=== PATIENT | male | born 1960 | race Caucasian/White ===

== ENCOUNTER 2022-07-02 13:22 | Outpatient (CLI) | payer BC ==
[2022-07-02 14:15] LABS: Hemoglobin 15.5 g/dL (13.5-17.5); Mean Corpuscular HGB CONC 35.1 g/dL (32.0-36.0); Mean Corpuscular Hemoglobin 31.3 pg (27.0-33.0); Mean Corpuscular Volume 89.1 fl (81.2-95.1); Platelet Count 276 10x3/uL (150-450); RBC Distribution Width 12.9 % (11.5-14.5); Red Blood Cell (RBC) Count 4.96 10x6/uL (4.32-5.72); White Blood Cell (WBC) Count 9.6 10x3/uL (3.5-10.5)
[2022-07-02 14:23] LABS: Anion Gap 12 mmol/L (10-20); BUN (Urea Nitrogen) 18 mg/dL (8.4-25.7); Calc. Creatinine Clearance 0 mL/min (70-130); Calcium 9.1 mg/dL (7.8-10.44); Carbon Dioxide 23 mmol/L (22-29); Chloride 110 mmol/L (98-107); Estimated GFR 71; Glucose 102 mg/dL (70-105); Potassium 4.2 mmol/L (3.5-5.1); Sodium 141 mmol/L (136-145)
== END 2022-07-02 13:23 | disposition home or self-care (01) ==
LOC: LABBT 13:22
PROVIDERS: ATTEND Neurological Surgery
DX: Z01.818 Encounter for other preprocedural examination (principal); M48.062 Spinal stenosis, lumbar region with neurogenic claudication
CPT/HCPCS: 80048; 85027; 93005; 93010

== ENCOUNTER 2022-07-07 06:47 | Observation (INO) | payer BC ==
[2022-07-04 16:24] VITALS: BMI 37.3
[2022-07-07] MEDS ORDERED: fentaNYL PF 100 MCG/2 ML SYRINGE ONE (09:30)
[2022-07-07] MEDS ORDERED: ePHEDrine 50 MG/ML VIAL ONE (09:37)
[2022-07-07] MEDS ORDERED: diphenhydrAMINE 50 MG/ML VIAL ONE (09:37)
[2022-07-07] MEDS ORDERED: NEOSTIGMINE 3 MG/3 ML SYR 3 MG/3 ML SYRINGE ONE (09:37)
[2022-07-07] MEDS ORDERED: Rocuronium Bromide 10 MG/ML (10ML VIAL) ONE (09:37)
[2022-07-07] MEDS ORDERED: PROPOFOL 200 MG/20 ML VIAL ONE (09:37)
[2022-07-07] MEDS ORDERED: Ketorolac Tromethamine 30 MG/ML VIAL ONE (09:37)
[2022-07-07] MEDS ORDERED: Dexamethasone 20 MG/5 ML VIAL ONE (09:37)
[2022-07-07] MEDS ORDERED: Glycopyrrolate 0.2 MG/ML 5 ML SYRINGE ONE (09:37)
[2022-07-07] MEDS ORDERED: Ondansetron PF 4 MG/2 ML Vial ONE (09:37)
[2022-07-07] MEDS ORDERED: Meperidine HCl/PF 25 MG/ML VIAL SLOW IVP PRN (10:31)
[2022-07-07] MEDS ORDERED: Promethazine HCl 25 MG/ML VIAL IVPB PRN (10:31)
[2022-07-07] MEDS ORDERED: HYDROmorphone 2 MG/ML VIAL SLOW IVP PRN (10:31)
[2022-07-07] MEDS ORDERED: diphenhydrAMINE 25 MG CAP PO PRN (10:48)
[2022-07-07] MEDS ORDERED: traMADol HCl 50 MG TAB PO PRN (10:48)
[2022-07-07] MEDS ORDERED: Ondansetron PF 4 MG/2 ML Vial IVP PRN (10:48)
[2022-07-07] MEDS ORDERED: Mag-Al 1200 mg/1200 mg/30 ML UDCUP PO PRN (10:48)
[2022-07-07] MEDS ORDERED: Promethazine 25 MG TAB PO PRN (10:48)
[2022-07-07] MEDS ORDERED: Milk Of Magnesia 30 ML UDCUP PO PRN (10:48)
[2022-07-07] MEDS ORDERED: Methocarbamol 500 MG TAB PO PRN (10:51)
[2022-07-07] MEDS ORDERED: traZODone HCl 50 MG TAB PO PRN (10:52)
[2022-07-07] MEDS ORDERED: FENTANYL 50 MCG/ML 1 ML VIAL ONE ×3 (11:23→12:03)
[2022-07-07] MEDS ORDERED: Tamsulosin HCl 0.4 MG CAP ONE (11:35)
[2022-07-07] MEDS ORDERED: Morphine 4 MG/ML VIAL SLOW IVP PRN (11:39)
[2022-07-07] MEDS ORDERED: HYDROmorphone 0.5 MG/0.5 ML SYRINGE ONE (11:48)
[2022-07-07] MEDS ORDERED: Promethazine HCl 25 MG/ML VIAL ONE (12:07)
[2022-07-07] MEDS: Sodium Chloride 0.9% 1,000 ML IV SCH ×2 (13:09→23:10)
[2022-07-07] MEDS: Gabapentin 300 MG CAP PO SCH ×2 (14:38→19:39)
[2022-07-07] MEDS: oxyCODONE/Acetaminophen 5 mg/325 mg Tablet PO PRN ×3 (14:39→23:31)
[2022-07-07] MEDS: CEFAZOLIN 2 GM in Sodium Chloride 0.9% 100 ML IVPB SCH (17:10)
[2022-07-07] MEDS ORDERED: Baclofen 10 MG TAB PO SCH (21:00)
[2022-07-08] MEDS: CEFAZOLIN 2 GM in Sodium Chloride 0.9% 100 ML IVPB SCH ×2 (02:59→10:55)
[2022-07-08] MEDS: oxyCODONE/Acetaminophen 5 mg/325 mg Tablet PO PRN ×3 (03:06→12:17)
[2022-07-08] MEDS: Tamsulosin HCl 0.4 MG CAP PO SCH ×2 (03:55→08:20)
[2022-07-08 08:01] VITALS: TEMP 98.2
[2022-07-08] MEDS: Gabapentin 300 MG CAP PO SCH (08:20)
[2022-07-08] MEDS ORDERED: Lisinopril 20 MG TAB PO SCH (09:00)
[2022-07-08 11:30] VITALS: BP 142/81
[2022-07-08] MEDS: Sodium Chloride 0.9% 1,000 ML IV SCH (15:26)
== END 2022-07-08 13:59 | disposition home or self-care (01) ==
LOC: SDC 06:47 → SURG A 12:50
PROVIDERS: ADMIT Neurological Surgery; ATTEND Neurological Surgery
PROC: 0SG0071 Fusion of Lumbar Vertebral Joint with Autologous Tissue Substitute, Posterior Approach, Posterior Column, Open Approach (ICD-10-PCS; principal; 2022-07-07)
DX: M48.062 Spinal stenosis, lumbar region with neurogenic claudication (principal); M47.816 Spondylosis without myelopathy or radiculopathy, lumbar region; I10 Essential (primary) hypertension; E78.5 Hyperlipidemia, unspecified; G47.30 Sleep apnea, unspecified; E66.9 Obesity, unspecified; Z68.37 Body mass index [BMI] 37.0-37.9, adult; Z79.891 Long term (current) use of opiate analgesic; Z79.899 Other long term (current) drug therapy; Z88.2 Allergy status to sulfonamides; Z88.8 Allergy status to other drugs, medicaments and biological substances
CPT/HCPCS: 36416; 96365; 96375; 96376; C1713; C1768; C1776; G0378; J1100; J1170; J1200; J1885; J2270; J2405; J2550; J2704; J3010; J3490

== ENCOUNTER 2022-07-23 12:21 | Outpatient (CLI) | payer BC | END 2022-07-23 12:22 | disposition home or self-care (01) | LOC: TBSIIMAG 12:21 | PROVIDERS: ATTEND Neurological Surgery | DX: M48.062 Spinal stenosis, lumbar region with neurogenic claudication (principal) | CPT/HCPCS: 72100 ==

== ENCOUNTER 2022-09-03 12:53 | Outpatient (CLI) | payer BC | END 2022-09-03 12:54 | disposition home or self-care (01) | LOC: TBSIIMAG 12:53 | PROVIDERS: ATTEND Neurological Surgery | DX: M47.26 Other spondylosis with radiculopathy, lumbar region (principal); Z98.890 Other specified postprocedural states | CPT/HCPCS: 72100 ==

== ENCOUNTER 2022-12-31 11:05 | Outpatient (CLI) | payer BC | END 2022-12-31 11:06 | disposition home or self-care (01) | LOC: TBSIIMAG 11:05 | PROVIDERS: ATTEND Neurological Surgery | DX: M79.604 Pain in right leg (principal); M54.50 Low back pain, unspecified | CPT/HCPCS: 72100 ==